=== PATIENT | male | born 1995 | race Caucasian/White ===

== ENCOUNTER → 2019-11-26 | Outpatient (REF) | payer BC ==
[2019-11-26 14:04] LABS: HEPATITIS A ANTIBODY IGM NEGATIVE (NEGATIVE); HEPATITIS B CORE ANTIBODY IGM NEGATIVE (NEGATIVE); HEPATITIS B SURFACE ANTIGEN NEGATIVE (NEGATIVE); HEPATITIS C VIRUS ABY INDEX 0.1 INDEX (<0.8); HIV 1&2 SCREEN CENTAUR NEGATIVE (NEGATIVE)
== END ==
LOC: M LAB REF 12:11
PROVIDERS: ATTEND Internal Medicine
DX: Z72.51 High risk heterosexual behavior (principal)

== ENCOUNTER → 2020-06-16 | Outpatient (CLI) | payer BC ==
[2020-06-17 15:09] LABS: TESTOSTERONE FREE (DIRECT) 14.8 pg/mL (9.3-26.5)
== END ==
LOC: M WUC 08:54
PROVIDERS: ATTEND Nurse Practitioner Women's Health
DX: R68.82 Decreased libido (principal)